=== PATIENT | female | born 1965 | race Caucasian/White ===

== ENCOUNTER 2016-12-22 10:02 | Inpatient (IN) ==
--- NOTE | 2016-12-21 21:19 | Discharge Summary ---
<Estrellita Coffman - Last Filed: 12/21/16 21:17> Date of Encounter: 12/21/16 - Discharge Diagnosis (1) Arthritis of knee, right Priority: Primary Status: Acute (2) Tobacco use Priority: Secondary Status: Chronic (3) Obesity Priority: Secondary Status: Chronic Qualifiers: Obesity type: unspecified obesity type Obesity severity: unspecified obesity severity Qualified Code(s): E66.9 - Obesity, unspecified (4) Sinusitis Priority: Secondary Status: Acute Qualifiers: Sinusitis location: unspecified location Chronicity: acute Recurrence: not specified as recurrent Qualified Code(s): J01.90 - Acute sinusitis, unspecified - Discharge Medications Home Medications: Ibuprofen [Motrin] 800 mg PO BID 07/19/16 [History] Amoxicillin 875 mg PO BID 12/22/16 [History] Loratadine [Claritin] 10 mg PO DAILY 12/22/16 [History] Allergies/Adverse Reactions: Allergies No Known Allergies Allergy (Verified 07/19/16 21:36) Primary care physician: Alonso Kelley MD - Patient Status Disposition: Home, Self-Care Condition: Good - Discharge Instructions Follow Up With: Alonso Kelley MD [Primary Care Provider] - - Hospital Course Hospital course: Ms. Montague is a 51 year old female - Time Spent with Patient Total time spent providing and/or coordinating discharge services: <Kam Walkerh - Last Filed: 12/23/16 06:25> Date of Encounter: 12/23/16 Time of Encounter: 06:24 - Discharge Diagnosis (1) Arthritis of knee, right Priority: Primary Status: Acute (2) Tobacco use Priority: Secondary Status: Chronic (3) Obesity Priority: Secondary Status: Chronic Qualifiers: Obesity type: unspecified obesity type Obesity severity: unspecified obesity severity Qualified Code(s): E66.9 - Obesity, unspecified Primary care physician: Alonso Kelley MD - Patient Status Functional capacity at discharge: uses cane/walker Overall status at discharge: patient is progressing back to baseline - Hospital Course Hospital course: Ms. Montague is a 51 year old female The patient had an uneventful postoperative course. They received antibiotics and physical therapy and were discharged in stable condition. There will follow -up in the office in 2 weeks. Aspirin DVT prophylaxis - Time Spent with Patient Total time spent providing and/or coordinating discharge services:
[2016-12-22] MEDS ORDERED: Lidocaine -MPF 1% 2 ML VIAL ID ONE (10:26)
[2016-12-22] MEDS ORDERED: CeFAZolin Pre 2,000 MG/100 ML 2,000 MG/100 ML BAG IVPB ONE (10:26)
[2016-12-22] MEDS ORDERED: Albuterol 2.5 MG/3 ML NEBULIZER IH ONE ×2 (10:26→14:02)
[2016-12-22] MEDS ORDERED: Ringers Solution, Lactated 1,000 ML IVC SCH ×3 (10:30→16:35)
--- NOTE | 2016-12-22 10:37 | History & Physical Report ---
Date of Encounter: 12/22/16 Time of Encounter: 10:37 24 Hour HP Update - Instructions Instructions: If the History and Physical is less than 30 days old and was completed prior to A.M. admission and or procedure and has NOT been updated on calendar day of procedure please complete this update prior to performing procedure. - Update Patient reports changes in Medical Condition: No Changes in examination, assessment, or condition: No Changes in Medication: No Preop tests/diagnostics Reviewed: Yes Surgery Remains Indicated: Yes Consent for Planned Operative Procedure(s) Verified: Yes - Pre-Operative Checklist Preoperative Checklist Indicated: No Prophylactic Antibiotic Ordered: Yes Is VTE Prophylaxis Indicated?: Yes
[2016-12-22] MEDS ORDERED: Famotidine 20 MG/2 ML VIAL IVP ONE (10:44)
[2016-12-22] MEDS ORDERED: Gabapentin 300 MG CAPSULE PO ONE (10:45)
--- NOTE | 2016-12-22 11:57 | Anesthesia Evaluation PreOp ---
Date of Encounter: 12/22/16 Time of Encounter: 12:00 - Past History Planned Operation: Rt TKA Cardiac History: Hyperlipidemia Pulmonary History: Smoker PUBLIC HEALTH INSPECTOR History: Denies Any Significant HX Other Medical History: Other (Depression, Morbid Obesity) Anesthesia History: No Prior Anesthetic Complications : No Alcohol Use: none Drug use: none Medications and Allergies Ibuprofen [Motrin] 800 mg PO BID 07/19/16 [History] Amoxicillin 875 mg PO BID 12/22/16 [History] Loratadine [Claritin] 10 mg PO DAILY 12/22/16 [History] Allergies No Known Allergies Allergy (Verified 07/19/16 21:36) - Meds/Allergy Pre-op Review Medications Reviewed: Yes Allergies Reviewed: Yes Beta Blockers on Current Med List: No Anesthesia Results - Labs Laboratory Tests 12/11/16 12/11/16 08:26 08:26 Hgb 13.8 Hct 40.8 Plt Count 319 Sodium 140 Potassium 4.0 BUN 15 Creatinine 0.81 Anesthesia Exam O2 Sat Height 1.63 m Height 1.63 m Height 1.63 m Weight 103.873 kg Weight 103.873 kg Weight 103.873 kg O2 Sat by Pulse Oximetry 96 O2 Sat by Pulse Oximetry 96 O2 Sat by Pulse Oximetry 96 Vital Signs Temp Pulse Resp BP Pulse Ox 98.1 F 79 18 122/75 96 12/22/16 10:26 12/22/16 10:26 12/22/16 10:26 12/22/16 10:26 12/22/16 10:26 Height: 5'4 Weight: 230 lbs NPO (# of Hours): MN Pain Scale: 0 - HEENT Pupil (Motor): Pupils equal, EOMI Mallampati: II Teeth: Normal Oral Opening: Greater than 3 - PUBLIC HEALTH INSPECTOR LOC: Oriented PUBLIC HEALTH INSPECTOR Motor: Normal RUE, Normal LUE, Normal RLE, Normal LLE, Normal Face PUBLIC HEALTH INSPECTOR Sensory: Normal: RUE, LUE, RLE, LLE, Face - Cardiac Rhythm: Regular Murmur: None JVD: No Carotid Bruit: No - Pulmonary Breath Sounds: bilateral Clear Respiratory Effort: Symmetrical Anesthesia Assess/Plan ASA Score: 3 ([place] Tobacco) Modified [place] Scale for Level of Consciousness: Cooperative, oriented, and tranquil Anesthetic Plan: General, Regional Monitoring Plan: Standard Monitors Recovery Plan: PACU (Discussed GA and RA, agrees to proceed)
[2016-12-22] MEDS ORDERED: *HR* FentaNYL (PF) 100 MCG/2 ML VIAL ONE (12:13)
[2016-12-22] MEDS ORDERED: Lidocaine -MPF 2% 2 ML VIAL ONE (12:14)
[2016-12-22] MEDS ORDERED: *HR* Midazolam HCl 2 MG/2 ML VIAL ONE (12:14)
[2016-12-22] MEDS ORDERED: *HR* Propofol 200 MG/20 ML VIAL IVP ONE (12:14)
[2016-12-22] MEDS ORDERED: ROPIVACAINE HCL/PF 0.5% 30 ML VIAL ONE (13:17)
[2016-12-22] MEDS ORDERED: Bupivacaine/Clonidine Syringe 1 EACH SYRINGE ONE (13:18)
[2016-12-22] MEDS ORDERED: Tetracaine/PF 20 MG/2 ML AMPUL ONE (13:28)
[2016-12-22] MEDS ORDERED: Dexamethasone 4 MG/ML VIAL ONE (13:56)
[2016-12-22] MEDS ORDERED: Ondansetron 4 MG/2 ML VIAL ONE (13:56)
[2016-12-22] MEDS ORDERED: EPHEDrine 50 MG/ML VIAL ONE (13:58)
[2016-12-22] MEDS ORDERED: *HR* HYDROmorphone 2 MG/ML SYRINGE ONE (14:01)
--- NOTE | 2016-12-22 14:01 | Anesthesia Procedures ---
Date of Encounter: 12/22/16 Time of Encounter: 13:59 Procedures: Anesthesia - Nerve Block Procedure Date: 12/22/16 Time: 13:59 Surgical Procedure: right total knee replacement Checklist: Correct Patient Identifier, Correct procedure, History checked Correct side: Right Blood Thinner: No Monitor Applied: EKG, BP, Pulse Oximetry Supplemental Oxygen via Nasal Cannula (L/min): 2 Sedation: Versed (mg): 2 Sedation: Fentanyl (mcg): 100 Indication: Post Op Analgesia Pre-op Neuro Deficits: No Block Type: Femoral, Other (ipack) Catheter placed: No Sterile Technique: Yes Ultrasound used: Yes Anatomy identified: Yes Visual spread of Local: Yes Neuro Stimulation: Yes Nerve Stimulator Range: >0.4 - 0.6 mA (femoral) Blood on Needle Aspiration: No Smooth Injection of Local: Yes Pain with Injection of Local: No Prep: Chlorhexadine Needle: 22 x 50 mm Stimuplex Local: 0.25% Bupivicaine w/Clonidine 20 mcg/cc (ipack), Ropivacaine (30ml 0.5% femoral) Volume (cc): 40 Number of Attempts: 1 Complications: None/effective block Vitals: Vital Signs/O2 Sat/Glucose, Most Current Temp Pulse Resp BP Pulse Ox 12/22/16 13:25 75 128/77 96 12/22/16 10:41 98.1 F 79 18 122/75 96 12/22/16 10:26 98.1 F 79 18 122/75 96 Comments: pt tolerated procedure well. no complications. vss.
[2016-12-22] MEDS ORDERED: *HR* Labetalol 100 MG/20 ML MDV IVP PRN (14:02)
[2016-12-22] MEDS ORDERED: *HR* Meperidine 25 MG/ML SYRINGE IVP PRN (14:02)
[2016-12-22] MEDS ORDERED: Naloxone 0.4 MG/ML INJ IVP PRN ×2 (14:02→16:35)
[2016-12-22] MEDS ORDERED: Ondansetron 4 MG/2 ML VIAL IVP ONE (14:02)
--- NOTE | 2016-12-22 14:33 | Orthopedic Operative Note ---
Date of procedure: 12/22/16 Pre-op diagnosis: right knee arthritis Post-op diagnosis: same Procedure: Procedure: Right Total knee replacement Estimated blood loss: 200 cc Hardware: Metal and polyethylene replacement. Arthrex Femur: 6 Tibia: 5 PS insert: 11 Patella:34 Exam Under anesthesia: Full motion no instability Procedural Notes: Grade 3 medial and patellofemoral compartments Operative procedure: The patient was brought to the operating room and placed on the operating room table. After general anesthesia was administered the operative knee was examined. Findings were noted in the exam under anesthesia. The operative extremity was prepped and draped in sterile surgical fashion. The patient received IV antibiotics prior to skin incision. A standard midline incision was made centered over the patella. The incision was made through the skin and subcutaneous tissue. A medial parapatellar tendon approach was performed. Care was taken to preserve tissue along the medial aspect of the patella. And to protect the patella tendon. The deep MCL was released off the medial tibia. The infra patella fat pad was excised. Knee was brought into flexion. Grade 3 arthritic changes no compartment patellofemoral joint. The entry hole was made for the intramedullary femoral guide. The guide was seated in 6 degrees of valgus. Anterior cut was made followed by the distal cut. The ACL the PCL the medial and the lateral menisci were excised. The tibia was subluxed forward. The entry hole was made for the intramedullary tibial guide. Guide was seated to resect 2 mm off the more abnormal side. The knee was brought into flexion the distal femur was sized to a 6. The femoral guide was seated, the anterior cut was made followed by the posterior condylar cut, followed by the chamfer cuts. The finishing guide was seated the box cut was made and the lug holes were drilled. The tibia was sized to a 5, the tibial tray was seated and prepared with the large drill followed by the fin cutter. Trial reduction revealed full extension no varus valgus instability with the appropriate 11 PS Lucina. The patella was everted and cut was made at the level of the insertion of the quadriceps and patella tendon. The patella was sized 34 the guide was seated and the lug holes are drilled. Trial reduction revealed excellent patella tracking. All trial components were removed all bony surfaces were irrigated. The tibia was cemented first followed by the femur. The 11 PS Lucina was seated and the knee was brought into full extension. The patella was cemented and held in place with the patellar holding clamp. After the cement had hardened, the knee sat for 2 minutes with a Betadine saline solution. The knee was then irrigated out with 2 L of pulse irrigation. The extensor mechanism was closed with #2 FiberWire suture and #2 PDS suture. The subcutaneous tissue was then irrigated and closed deep with #1 PDS suture superficially with 0 PDS suture and skin was closed with skin sp. The patient was then placed in a sterile dressing and a postoperative brace extubated and transferred to recovery room in stable condition. Anesthesia: MORRO Surgeon: Kam Walker Freight Flagman: Estrellita Coffman Condition: stable Disposition: PACU
[2016-12-22] MEDS ORDERED: Ketorolac 30 MG/ML VIAL ONE (15:03)
[2016-12-22] MEDS: *HR* HYDROmorphone (PF) 1 MG/ML SYRINGE IVP PRN ×2 (15:34→15:41)
[2016-12-22 15:47] LABS: Hematocrit 37.7 % (35.3-44.9); Hemoglobin 12.7 g/dL (11.5-15.4)
[2016-12-22] MEDS ORDERED: Ondansetron 4 MG/2 ML VIAL IVP PRN (16:35)
[2016-12-22] MEDS ORDERED: *HR* OxyCODONE Immed Rel 5 MG TABLET PO PRN (16:35)
[2016-12-22] MEDS ORDERED: Sennosides 8.6 MG TABLET PO PRN (16:35)
[2016-12-22] MEDS ORDERED: MOM Conc 10 ML UD.LIQ PO PRN (16:35)
[2016-12-22] MEDS ORDERED: *HR* Enoxaparin 30 MG/0.3 ML SYRINGE SQ SCH (18:00)
[2016-12-22] MEDS: ceFAZolin 2,000 MG in D5% in Water 100 ML IVPB SCH (18:32)
[2016-12-22] MEDS: *HR* Enoxaparin 30 MG/0.3 ML SYRINGE SQ SCH (18:33)
[2016-12-22] MEDS ORDERED: Temazepam 15 MG CAPSULE PO PRN (21:00)
[2016-12-22] MEDS: Ibuprofen 800 MG TABLET PO SCH (21:58)
[2016-12-23] MEDS: *HR* HYDROmorphone (PF) 1 MG/ML SYRINGE IVP PRN ×2 (00:34→16:51)
[2016-12-23] MEDS: ceFAZolin 2,000 MG in D5% in Water 100 ML IVPB SCH (00:36)
[2016-12-23 05:41] LABS: Hematocrit 35.5 % (35.3-44.9); Hemoglobin 11.8 g/dL (11.5-15.4)
[2016-12-23] MEDS: *HR* Enoxaparin 30 MG/0.3 ML SYRINGE SQ SCH ×2 (05:55→16:49)
[2016-12-23] MEDS: *HR* OxyCODONE Immed Rel 5 MG TABLET PO PRN ×3 (05:56→15:36)
[2016-12-23 05:59] LABS: BUN/Creatinine Ratio 15 (6-26); Blood Urea Nitrogen 12 mg/dL (7-20); Calcium 8.9 mg/dL (8.6-10.8); Carbon Dioxide 25 mEq/L (19-29); Chloride 105 mEq/L (98-109); Glucose 128 mg/dL (70-99); Osmolality,Calculated 285 (280-300); Potassium 4.3 mEq/L (3.5-4.5); Sodium 137 mEq/L (136-145); eGFR For African Americans > 60 (> 60); eGFR For Non-African Americans > 60 (> 60)
--- NOTE | 2016-12-23 06:26 | Orthopedics Progress Note ---
Date of Encounter: 12/23/16 Time of Encounter: 06:25 - Assessment and Plan (1) Arthritis of knee, right Current Visit: Yes Status: Acute (2) Tobacco use Current Visit: Yes Status: Chronic (3) Obesity Current Visit: Yes Status: Chronic Qualifiers: Obesity type: unspecified obesity type Obesity severity: unspecified obesity severity Qualified Code(s): E66.9 - Obesity, unspecified Subjective Interval history: Patient was seen this morning doing well without complaints. Afebrile vital signs stable. Operative extremity: Neurovascularly intact Dressing clean dry and intact Calves nontender Assessment and plan: Continue with postoperative care Hematocrit 35 discharged today Objective Vital signs: Vital Signs Temp Pulse Resp BP Pulse Ox 12/23/16 03:28 97.9 F 64 14 111/70 96 12/23/16 00:20 97.8 F 69 14 121/73 97 12/22/16 19:25 98.0 F 76 16 102/67 98 12/22/16 18:30 97.7 F 69 12 113/73 97 12/22/16 17:32 97.7 F 71 12 124/74 96 12/22/16 17:29 97.5 F L 67 12 131/86 93 12/22/16 16:55 97.7 F 69 12 116/73 95 12/22/16 16:30 95 12/22/16 16:14 97.8 F 72 16 132/97 93 12/22/16 16:04 97.8 F 74 16 120/97 94 12/22/16 15:54 73 16 114/98 93 12/22/16 15:44 98.1 F 66 16 116/79 96 12/22/16 15:34 74 16 142/87 94 12/22/16 15:24 69 16 124/79 94 12/22/16 15:14 97.0 F L 66 16 134/78 97 12/22/16 13:25 75 128/77 96 12/22/16 10:41 98.1 F 79 18 122/75 96 12/22/16 10:26 98.1 F 79 18 122/75 96 Intake and Output 12/22/16 12/22/16 12/23/16 15:59 23:59 07:59 Intake Total 600 / 600 870 / 870 Output Total 200 / 200 100 / 100 0 / 0 Balance -200 / -200 500 / 500 870 / 870 Intake: IV Fluids 100 / 100 Ancef 2,000 MG In 100 / 100 Dextrose 5% 100 ML @ 200 mls/hr IVPB Q8HR [facility] Rx#: [id number] Oral 600 / 600 770 / 770 Output: Urine 0 / 0 100 / 100 0 / 0 Estimated Blood Loss 200 / 200 Other: Meal Dinner Percent of Meal Consumed 75% Stool Consistency liquid # Voids 1 # Bowel Movements 1 Weight 103.873 kg 103 kg Patient Weight 12/23/16 23:59 Weight 103 kg - Labs CBC & BMP: 12/23/16 05:05 12/23/16 05:05 Labs: Abnormal lab results Glucose 128 mg/dL (70-99) H 12/23/16 05:05 - VTE Documentation of Mechanical Device: Venous foot pump, device Consult Discharge Plan - Plan Referrals: Alonso Kelley MD [Primary Care Provider] -
[2016-12-23] MEDS: Ibuprofen 800 MG TABLET PO SCH ×2 (10:00→20:33)
[2016-12-23] MEDS: Loratadine 10 MG TABLET PO SCH (10:01)
[2016-12-23] MEDS: Nicotine 21 MG PATCH.TD24 TD SCH (17:18)
[2016-12-24] MEDS: *HR* OxyCODONE Immed Rel 5 MG TABLET PO PRN ×2 (03:06→09:15)
[2016-12-24] MEDS: *HR* Enoxaparin 30 MG/0.3 ML SYRINGE SQ SCH (05:16)
[2016-12-24] MEDS: *HR* HYDROmorphone (PF) 1 MG/ML SYRINGE IVP PRN (05:29)
[2016-12-24 06:48] LABS: Hematocrit 31.3 % (35.3-44.9); Hemoglobin 10.4 g/dL (11.5-15.4)
[2016-12-24 07:08] LABS: BUN/Creatinine Ratio 24 (6-26); Blood Urea Nitrogen 19 mg/dL (7-20); Calcium 8.6 mg/dL (8.6-10.8); Carbon Dioxide 26 mEq/L (19-29); Chloride 105 mEq/L (98-109); Glucose 111 mg/dL (70-99); Osmolality,Calculated 291 (280-300); Potassium 3.7 mEq/L (3.5-4.5); Sodium 139 mEq/L (136-145); eGFR For African Americans > 60 (> 60); eGFR For Non-African Americans > 60 (> 60)
--- NOTE | 2016-12-24 08:16 | Orthopedics Progress Note ---
Date of Encounter: 12/24/16 Time of Encounter: 08:16 - Assessment and Plan (1) Arthritis of knee, right Current Visit: Yes Status: Acute (2) Tobacco use Current Visit: Yes Status: Chronic (3) Obesity Current Visit: Yes Status: Chronic Qualifiers: Obesity type: unspecified obesity type Obesity severity: unspecified obesity severity Qualified Code(s): E66.9 - Obesity, unspecified Subjective Interval history: Patient was seen this morning doing well without complaints. Afebrile vital signs stable. Operative extremity: Neurovascularly intact Dressing clean dry and intact Calves nontender Assessment and plan: Continue with postoperative care Hematocrit 31 discharged today Objective Vital signs: Vital Signs Temp Pulse Resp BP Pulse Ox 12/24/16 05:25 68 110/71 12/24/16 01:01 98.3 F 79 16 104/61 95 12/23/16 19:34 97.6 F 81 16 115/68 95 12/23/16 15:55 98 F 79 18 105/70 100 12/23/16 11:08 98.5 F 82 16 115/73 98 12/23/16 09:58 60 16 95/59 91 Intake and Output 12/23/16 12/24/16 12/24/16 23:59 07:59 15:59 Intake Total 220 / 220 450 / 450 Balance 220 / 220 450 / 450 Intake: Oral 220 / 220 450 / 450 Other: # Voids 1 - Labs CBC & BMP: 12/24/16 05:57 12/24/16 05:57 Labs: Abnormal lab results Hgb 10.4 g/dL (11.5-15.4) L 12/24/16 05:57 Hct 31.3 % (35.3-44.9) L 12/24/16 05:57 Glucose 111 mg/dL (70-99) H 12/24/16 05:57 - VTE Documentation of Mechanical Device: Venous foot pump, device Consult Discharge Plan - Plan Additional Instructions: Discharge Instructions: Total Knee Replacement Please call [facility] ([phone]), your Primary Care Physician, or report to the Emergency Room if you have any of the following symptoms: Nausea, vomiting, fever greater that 101.5, swelling, chest pain, shortness of breath, increased pain/redness/drainage/odor for your incision site, numbness/ tingling, or any other concerning symptoms. ACTIVITY:Weight-bearing as tolerated. You may progress off support (crutches or walker) as tolerated. MEDICATIONS: Upon discharge resume your home medications. Take all the medications as prescribed. Take a stool softener if taking narcotic pain medications. Stool softeners are only effective if you drink enough fluids. Drink 6-8 glass of water or fluids a day, unless this is not allowed for another health problem. Despite using stool softeners, if you haven't had a bowel movement in 3 days, please switch to a gentle laxative. Gentle laxatives are sold over the counter. You should have a bowel movement within 24 hours, if not call the office. You will be discharged from the hospital with a prescription for pain medication. You are encouraged to decrease the use of narcotic pain medication as tolerated. Should you require a refill, please call the office. [facility] prescribes narcotic pain medication for only 4-6 weeks after surgery. If you require pain medication beyond this time period, you may be referred to your Primary Care Physician or to the Pain Clinic for further evaluation. Plan ahead for refills on pain medication as many narcotics either need to be picked up at the office or mailed. It is best to call 48-72 hours in advance of needing a prescription refill so you don't run out of medication. To help control the post-operative pain, you may take NSAIDs (Aleve,Advil, Motrin, Ibuprofen, Naprosyn) or Tylenol as prescribed on the bottle in addition to the pain medication. ANTICOAGULATION (blood thinners): Continue your Aspirin, Lovenox or Coumadin as prescribed to help prevent a blood clot in the leg or in the lungs. As long as your incision remains dry and you tolerate the NSAIDs (Aleve, Advil, Motrin, ibuprofen, naprosyn), it is OK to use the NSAIDS while you are taking your anticoagulation medication. Should your incision start to drain, stop the NSAID and contact our office. Common symptoms of blood clot in the legs include: localized pain, swelling, calf tenderness, redness or discoloration of the skin. Blood clot in the lung symptoms include: shortness of breath, rapid pulse, sweating, and chest pain that worsens with deep breathing, coughing up blood, lightheadedness, feelings of anxiety. If you experience any of these symptoms notify your physician immediately, go to the emergency room, or if having trouble breathing, call 911. WOUND CARE: Leave the dressing on for 7 to 10days. You may change the dressing if it becomes saturated greater than 50%. Do not get the dressing wet at anytime. Wash your hands with antibacterial soap, rinse and dry prior to any wound care. If you have sp the visiting nurse or rehab facility can remove the stapes 10-14 days after surgery and place steri-strips across the wound. Leave the steri-strips in place until they fall off on their won. You may let water from the shower run on top of the steri-strips. If you do not have a visiting nurse or rehab facility, you will need to return to the office at 10-14 days for the sp to be removed. If you have itching or redness around the dressing call the office. FOLLOW-UP: Please follow up with your surgeon in the orthopedic clinic in 4 weeks from the day of surgery. If you have sp that need to be removed, you will need to come back to the office in 10-14 days from the day of surgery. Referrals: Kam Walker MD [Partnered Physician] - 01/02/17 9:00 am Alonso Kelley MD [Primary Care Provider] -
[2016-12-24] MEDS: Nicotine 21 MG PATCH.TD24 TD SCH (09:06)
[2016-12-24] MEDS: Loratadine 10 MG TABLET PO SCH (09:06)
[2016-12-24] MEDS: Ibuprofen 800 MG TABLET PO SCH (09:06)
[2016-12-24 10:55] VITALS: BP 122/81
== END 2016-12-24 15:10 | disposition home or self-care (01) | DRG 470 ==
LOC: SAMDAY 10:02 → 3NENU 16:24
PROVIDERS: ADMIT Orthopaedic Surgery; ATTEND Orthopaedic Surgery